=== PATIENT | female | born 1965 | race Hispanic/Latino ===

== ENCOUNTER 2018-04-16 09:23 | Outpatient (AMBR) | payer MEDICAID, SELFPAY ==
--- NOTE | 2018-04-16 10:04 | PT.OIERPT ---
PT OP Initial Eval Patient Information Visit Reasons: back pain Medical Diagnosis: M53.3 Treatment Dx #1: Sacrum Pain Start of Care: 04/16/18 Date of Onset: 1 year ago Initial Assessment Subjective Pt is a 53 y/o female c/o chronic tailbone pain started 1 year ago. Pt mention that she has the pain (4/10) intermittently only from sit to stand. Pt can perform all functional tasks, recreational activities, chores, cleaning, and ADLs without limitation. Pt has seen the chiropractor 1 x month for 6 months and has not notice any change in pain. She further mention that chiropractor recommend a SI belt which seems to not change the pain as well. Pt has had a recent xray but does not know the result. Pt feels that PT will not help as well but only came because her chiropractor's recommendation. Objective L/S AROM: all motions are WNL with overpressure with no pain Hip PROM: all motions are WNL with no pain Hip MMTs Glute Med: 3+/5 Glute Max: 3+/5 Special Test (-) L/S quadrant (-) P4 test (-) hip distraction test (-) hip compression test (+) sacral spring test (-) ALYCIA's Assessment Pt demonstrate normal spinal mobility and hip musculatures and not consistent with her sacarum pain. Pt's pain seem to be intermittent only with sit to stand, however, was not able to reproduce symptoms today. Pt will not benefit from skilled PT at this time. Pt advised to follow up with PCP for further consultation. Pt was evaluated and d/c from care, thank you for your referrals. Short Term and Blacksmith Supervisor Goals 1) Eval and D/C 2) Follow up with PCP Treatment Plan Eval and D/C Frequency and Duration 1x Certification Dates: 04/16/18 to 07/14/18 Office Procedures PT Procedures PT Date of Service: 04/16/18 OP PT Eval Mod Complex 30 minutes: Yes
--- NOTE | 2018-04-16 10:12 | PTNOTE_ITS ---
PT OP Initial Eval Patient Information Visit Reasons: back pain Medical Diagnosis: M53.3 Treatment Dx #1: Sacrum Pain Start of Care: 04/16/18 Date of Onset: 1 year ago Initial Assessment Subjective Pt is a 53 y/o female c/o chronic tailbone pain started 1 year ago. Pt mention that she has the pain (4/10) intermittently only from sit to stand. Pt can perform all functional tasks, recreational activities, chores, cleaning, and ADLs without limitation. Pt has seen the chiropractor 1 x month for 6 months and has not notice any change in pain. She further mention that chiropractor recommend a SI belt which seems to not change the pain as well. Pt has had a recent xray but does not know the result. Pt feels that PT will not help as well but only came because her chiropractor's recommendation. Objective L/S AROM: all motions are WNL with overpressure with no pain Hip PROM: all motions are WNL with no pain Hip MMTs Glute Med: 3+/5 Glute Max: 3+/5 Special Test (-) L/S quadrant (-) P4 test (-) hip distraction test (-) hip compression test (+) sacral spring test (-) ALYCIA's Assessment Pt demonstrate normal spinal mobility and hip musculatures and not consistent with her sacarum pain. Pt's pain seem to be intermittent only with sit to stand , however, was not able to reproduce symptoms today. Pt will not benefit from skilled PT at this time. Pt advised to follow up with PCP for further consultation. Pt was evaluated and d/c from care, thank you for your referrals. Short Term and Senior Product Engineer Goals 1) Eval and D/C 2) Follow up with PCP Treatment Plan Eval and D/C Frequency and Duration 1x Certification Dates: 04/16/18 to 07/14/18 Office Procedures PT Procedures PT Date of Service: 04/16/18 OP PT Eval Mod Complex 30 minutes: Yes
== END 2018-04-24 23:59 | disposition home or self-care (01) ==
PROVIDERS: PCP Surgery; Referring Provider Surgery; Visit Provider Chiropractor
DX: M53.3 Sacrococcygeal disorders, not elsewhere classified (principal); G89.29 Other chronic pain
CPT/HCPCS: 97162